=== PATIENT | male | born 1960 | race Caucasian/White ===

== ENCOUNTER → 2017-01-28 | Outpatient (CLI) | payer OTHER | LOC: RESP 14:01 | PROVIDERS: ATTEND Physician Assistant | DX: R00.2 Palpitations (principal); R06.02 Shortness of breath ==

== ENCOUNTER → 2017-07-23 | Outpatient (CLI) | payer OTHER | END | disposition home or self-care (01) | LOC: GMAJ 11:18 | PROVIDERS: ATTEND Family Medicine | DX: Z12.5 Encounter for screening for malignant neoplasm of prostate (principal) ==